=== PATIENT | male | born 1955 | race Caucasian/White ===

== ENCOUNTER → 2017-10-12 | Outpatient (REF) | payer BC ==
[2017-10-13 14:10] LABS: PSA % FREE 16.7 % (.); PSA FREE 0.97 ng/mL; PSA TOTAL 5.8 ng/mL (0.0-4.0)
== END ==
LOC: M LAB REF 13:32
DX: F52.21 Male erectile disorder (principal); R97.20 Elevated prostate specific antigen [PSA]
CPT/HCPCS: 84154

== ENCOUNTER → 2017-11-01 | Outpatient (CLI) | payer BC | LOC: M WUC 14:48 | DX: M25.511 Pain in right shoulder (principal) | CPT/HCPCS: 73030 ==

== ENCOUNTER → 2018-04-02 | Outpatient (REF) | payer BC ==
[2018-04-05 00:07] LABS: Lyme Disease IgG/IgM Antibodie <0.91 ISR (0.00-0.90); Lyme Disease IgM Ab Quantitati <0.80 index (0.00-0.79)
== END ==
LOC: M LAB REF 17:22
DX: M25.50 Pain in unspecified joint (principal)
CPT/HCPCS: 86617